=== PATIENT | male | born 1975 | race Caucasian/White ===

== ENCOUNTER 2017-04-24 12:37 | Emergency (ER) | payer SELFPAY ==
--- NOTE | 2017-04-24 13:21 | ER Document Report ---
ED Extremity Problem, Lower - General Chief Complaint: Ankle Pain Stated Complaint: LEFT ANKLE PAIN Time Seen by Provider: 04/24/17 13:05 Mode of Arrival: Ambulatory Information source: Patient Notes: 41-year-old male presents to ED for left ankle pain and on for a good while. States she has never been to see anybody about this pain but it is gotten worse over the last couple weeks. States it is to the point that he can barely walk on his foot. And he works in fast food. TRAVEL OUTSIDE OF THE [place] IN LAST 30 DAYS: No - HPI Location: Ankle, Foot Occurred: Other Where: Other Onset/Duration: Worse Quality of pain: Sharp, Throbbing Severity: Moderate Pain Level: 3 Context: Other - Chronic worse when walking Recent injury: No Associated symptoms: Painful ambulation Exacerbated by: Hanging down, Movement, Walking Relieved by: Elevation, Ice - Related Data Allergies/Adverse Reactions: No Known Allergies Allergy (Unverified 04/24/17 13:41) Past Medical History - General Information source: Patient - Social History Smoking Status: Never Smoker Cigarette use (# per day): No Chew tobacco use (# tins/day): No Smoking Education Provided: No Frequency of alcohol use: Occasional Drug Abuse: None Occupation: [employer] Lives with: Family Family History: Arthritis, CAD, COPD, CVA, DM, Hyperlipidemia, Hypertension, Malignancy, Thyroid Disfunction - Past Medical History Cardiac Medical History: Reports: Hx Hypertension Pulmonary Medical History: Reports: Hx Asthma, Hx Bronchitis EENT Medical History: Reports: None Neurological Medical History: Reports: None Endocrine Medical History: Reports: None Renal/ Medical History: Reports: None Malignancy Medical History: Reports None GI Medical History: Reports: None Musculoskeltal Medical History: Reports Hx Arthritis, Reports Hx Musculoskeletal Trauma - Boxer's fracture right Traumatic Medical History: Reports: Hx Fractures - Boxer fracture Infectious Medical History: Reports: None Surgical Hx: Negative Past Surgical History: Reports: None Review of Systems - Review of Systems Constitutional: No symptoms reported EENT: No symptoms reported Cardiovascular: No symptoms reported Respiratory: No symptoms reported Gastrointestinal: No symptoms reported Genitourinary: No symptoms reported Male Genitourinary: No symptoms reported Musculoskeletal: Ankle swelling, Other - Left foot and ankle pain Skin: No symptoms reported Hematologic/Lymphatic: No symptoms reported Neurological/Psychological: No symptoms reported -: Yes All other systems reviewed and negative Physical Exam - Vital signs Vitals: Temp Pulse Resp BP Pulse Ox 98.0 F 93 16 176/99 H 98 04/24/17 12:41 04/24/17 12:41 04/24/17 12:41 04/24/17 12:41 04/24/17 12:41 Interpretation: Normal - General General appearance: Appears well, Alert - HEENT Head: Normocephalic, Atraumatic Eyes: Normal Pupils: PERRL - Respiratory Respiratory status: No respiratory distress Chest status: Nontender Breath sounds: Normal Chest palpation: Normal - Cardiovascular Rhythm: Regular Heart sounds: Normal auscultation Murmur: No - Abdominal Inspection: Normal Distension: No distension Bowel sounds: Normal Tenderness: Nontender Organomegaly: No organomegaly - Back Back: Normal, Nontender - Extremities General upper extremity: Normal inspection, Nontender, Normal color, Normal ROM , Normal temperature General lower extremity: Normal inspection, Normal color, Normal temperature, Normal weight bearing. No: Nhan's sign Ankle: Tender. No: Normal, Nontender, Abrasion, Deformity, Edema, Ecchymosis, Instability, Laceration, Limited ROM, Positive Najera's test, Unable to bear weight, Other Foot: Tender, No evidence of FB. No: Normal, Nontender, Abrasion, Deformity, Edema, Ecchymosis, Instability, Laceration, Metatarsal compress. pain, Nail injury, Navicular tenderness, Puncture wound, Unable to bear weight, Tender 5th metatarsal, Other - Neurological Neuro grossly intact: Yes Cognition: Normal Orientation: AAOx4 Corwith Coma Scale Eye Opening: Spontaneous Milli Coma Scale Verbal: Oriented Milli Coma Scale Motor: Obeys Commands Milli Coma Scale Total: 15 Speech: Normal Motor strength normal: LUE, RUE, LLE, RLE Sensory: Normal - Psychological Associated symptoms: Normal affect, Normal mood - Skin Skin Temperature: Warm Skin Moisture: Dry Skin Color: Normal Course - Vital Signs Vital signs: Temp Pulse Resp BP Pulse Ox 97.6 F 75 16 150/92 H 97 04/24/17 15:10 04/24/17 15:10 04/24/17 15:10 04/24/17 15:10 04/24/17 15:10 - Diagnostic Test Radiology reviewed: Image reviewed, Reports reviewed Discharge - Discharge Clinical Impression: Pain in left foot Heel spur Qualifiers: Laterality: left Qualified Code(s): M77.32 - Calcaneal spur, left foot Condition: Stable Disposition: HOME, SELF-CARE Instructions: Plantar Fasciitis or Heel Spur ([facility]), Exercises for the Foot Muscles ([facility]), Use of Avzb-Gsp-Aixubus Ibuprofen ([facility]) Additional Instructions: ICE & ELEVATION: Apply ice packs frequently against the painful area. Many different schedules are recommended, such as "20 minutes on, 20 minutes off" or "one hour ice, two hours rest." If you need to work, you may need to go longer between ice treatments. You should plan to have the area ice packed AT LEAST one- fourth of the time. The ice should be applied over the wrap, tape, or splint, or over a layer of cloth -- not directly against the skin. Some ice bags have a built-in cloth and can be put directly on the skin. Your injured part should be elevated as much as possible over the next 48 hours. Try to keep the injury above the level of the heart. Avoid use of the injured area. Elevation and rest will decrease the swelling. USE OF [id number] IBUPROFEN: Ibuprofen (Advil, Nuprin, Medipren, Motrin IB) is a medication for fever and pain control. In addition, it has anti- inflammatory effects which may be beneficial, especially in the treatment of injuries. It's best to take ibuprofen with food. Persons with ulcer disease or allergy to aspirin should notify their physician of this before taking ibuprofen. Ibuprofen can be given every four to six hours, for a total of four doses daily. Age Pain or fever dose Antiinflammatory dose 6-8 yr 200 mg (1 tab) 200 mg (1 tab) 9-11 yr 200 mg (1 tab) 200-400 mg (1-2 tab) 11-14 yr 200-400 mg (1-2 tab) 400 mg (2 tab) 15-adult 400 mg (2 tab) 600 mg (3 tab) FOLLOW-UP CARE: If you have been referred to a physician for follow-up care, call the physician s office for an appointment as you were instructed or within the next two days. If you experience worsening or a significant change in your symptoms, notify the physician immediately or return to the Emergency Department at any time for re-evaluation. Call the legal file clerk today and schedule a follow-up appointment for your foot pain. Forms: Elevated Blood Pressure, Return to Work Referrals: GEOVANNI KAUR DPM [ACTIVE STAFF] - Follow up as needed
--- NOTE | 2017-04-24 13:49 | RADIOLOGY REPORT (SQ) ---
EXAM DESCRIPTION: FOOT LEFT COMPLETE COMPLETED DATE/TIME: 04/24/2017 1:31 pm REASON FOR STUDY: pain COMPARISON: None. NUMBER OF VIEWS: Three views. TECHNIQUE: AP, lateral and oblique radiographic images acquired of the left foot. LIMITATIONS: Artifact from patient's socks FINDINGS: MINERALIZATION: Normal. BONES: No acute fracture or dislocation. No worrisome bone lesions. Moderate plantar and dorsal cheng caneal spurs. JOINTS: No effusions. SOFT TISSUES: No soft tissue swelling. No foreign body. OTHER: No other significant finding. IMPRESSION: Moderate-sized plantar and dorsal calcaneal spurs. No acute fracture. TECHNICAL DOCUMENTATION: JOB ID: [id number] [employer]- All Rights Reserved
--- NOTE | 2017-04-24 14:03 | RADIOLOGY REPORT (SQ) ---
EXAM DESCRIPTION: ANKLE LEFT COMPLETE COMPLETED DATE/TIME: 04/24/2017 1:30 pm REASON FOR STUDY: increase in pain COMPARISON: None. NUMBER OF VIEWS: Three views. TECHNIQUE: AP, lateral, and oblique radiographic images acquired of the left ankle. LIMITATIONS: None. FINDINGS: MINERALIZATION: Normal. BONES: There are prominent plantar and dorsal calcaneal spurs. There is no acute fracture or disloca tion. JOINTS: No effusions. SOFT TISSUES: Soft tissue swelling. OTHER: No other significant finding. IMPRESSION: Calcaneal spurs with no acute osseous abnormality. TECHNICAL DOCUMENTATION: JOB ID: [id number] [employer]- All Rights Reserved
[2017-04-24 15:16] VITALS: BP 150/92
== END 2017-04-24 15:11 | disposition home or self-care (01) ==
LOC: ER 12:37
DX: M77.32 Calcaneal spur, left foot (principal); M79.672 Pain in left foot; M25.572 Pain in left ankle and joints of left foot; I10 Essential (primary) hypertension; J45.909 Unspecified asthma, uncomplicated
CPT/HCPCS: 99283